=== PATIENT | male | born 1990 | race Caucasian/White ===

== ENCOUNTER 2017-07-10 08:27 | Emergency (ER) | payer BC, MEDICAID ==
[2017-07-10 08:44] VITALS: BP 123/83; PULSE 88; RESP 18; TEMP 98.3; O2SAT 99
--- NOTE | 2017-07-10 09:12 | C.PDOC ---
History Of Present Illness 27 year old male presents to ED for evaluation of runny nose, and non- productive cough for the past week. Pt also complaints of bilateral eye itching , and redness to right eye with clear discharge for the last 2 days. Otherwise, denies abdominal pain, n/v/d, or fever. Time Seen by Provider: 07/10/17 09:01 Chief Complaint (Nursing): Eye Problem History Per: Patient History/Exam Limitations: no limitations Onset/Duration Of Symptoms: Days Current Symptoms Are (Timing): Still Present Injury To Eye?: No Associated Symptoms: Itching, Discharge From Eye. denies: Decreased Vision, Swelling, FB Sensation Additional History Per: Patient Past Medical History Reviewed: Historical Data, Nursing Documentation, Vital Signs Vital Signs: Last Vital Signs Temp 98.3 F 07/10/17 08:43 Pulse 88 07/10/17 08:43 Resp 18 07/10/17 08:43 BP 123/83 07/10/17 08:43 Pulse Ox 99 07/10/17 09:12 - [facility] OTHER SKIN & SUBQ I D (01/17/14) Family History: States: Unknown Family Hx - Social History Hx Tobacco Use: No Hx Alcohol Use: Yes Hx Substance Use: No - Immunization History Hx Tetanus Toxoid Vaccination: No Hx Influenza Vaccination: Yes Hx Pneumococcal Vaccination: No Review Of Systems Except As Marked, All Systems Reviewed And Found Negative. Constitutional: Negative for: Fever, Chills Eyes: Positive for: Redness, Other (itching to both eyes). Negative for: Vision Change ENT: Positive for: Nose Discharge (runny nose), Nose Congestion. Negative for: Ear Pain Cardiovascular: Negative for: Chest Pain Respiratory: Positive for: Cough. Negative for: Shortness of Breath, Sputum Gastrointestinal: Negative for: Nausea, Vomiting, Abdominal Pain, Diarrhea Neurological: Negative for: Headache, Dizziness Physical Exam - Physical Exam Appears: Non-toxic, No Acute Distress (comfortable) Skin: Normal Color, Warm, Dry Head: Normacephalic Eye(s): right: Other (injected sclera with clear discharge), left: Normal Inspection Nose: Normal Oral Mucosa: Moist Tongue: Normal Appearing Lips: Normal Appearing Throat: Normal, No Erythema, No Exudate, No Drooling Neck: Normal ROM, Supple Cardiovascular: Rhythm Regular, No Murmur Respiratory: No Accessory Muscle Use, No Rales, No Rhonchi, No Wheezing Extremity: Normal ROM Neurological/Psych: Oriented x3, Normal Speech ED Course And Treatment O2 Sat by Pulse Oximetry: 99 (RA) Pulse Ox Interpretation: Normal Progress Note: Pt was given Sudafed. On reassessment, patient is resting comfortably, and is in no acute distress. Patient was instructed to follow up with physician/clinic in 1-2 days for further evaluation. Disposition Counseled Patient/Family Regarding: Diagnosis, Need For Followup, Rx Given - Disposition Referrals: Noah Mckeon DO [Medical Doctor] - Disposition: HOME/ ROUTINE Disposition Time: 09:20 Condition: STABLE Additional Instructions: FOLLOW UP WITH YOUR DOCTOR IN 1-2 DAYS DRINK PLENTY OF FLUIDS USE MEDICATIONS DIRECTED RETURN TO ER IF SYMPTOMS WORSEN Prescriptions: Benzonatate [Tessalon Perles] 100 mg PO BID PRN #15 sgl PRN Reason: Cough Ofloxacin Ophth 0.3% [Ocuflox Ophth 0.3%] 1 drop GT Q4 #1 bottle Pseudoephedrine [Sudafed] 60 mg PO Q6 PRN #12 tab PRN Reason: Nasal Congestion Instructions: Viral Syndrome (ED), Conjunctivitis (ED) Forms: [facility] (Yoruba), Work Excuse Print Language: LITHUANIAN - Clinical Impression Clinical Impression: Viral upper respiratory infection, Conjunctivitis - Scribe Statement The provider has reviewed the documentation as recorded by the Danya Mckinney All medical record entries made by the Gamalielibe were at my direction and personally dictated by me. I have reviewed the chart and agree that the record accurately reflects my personal performance of the history, physical exam, medical decision making, and the department course for this patient. I have also personally directed, reviewed, and agree with the discharge instructions and disposition.
== END 2017-07-10 09:43 | disposition home or self-care (01) ==
LOC: C.ER 08:27
DX: J06.9 Acute upper respiratory infection, unspecified (principal); H10.9 Unspecified conjunctivitis